=== PATIENT | female | born 1955 | race Caucasian/White ===

== ENCOUNTER 2017-04-13 12:36 | Observation (INO) | payer BC, MEDICARE ==
[2017-04-13] MEDS ORDERED: HYDROcodone/Acetaminophen 5/325 mg Tablet ONE ×2 (13:07→15:09)
--- NOTE | 2017-04-13 13:46 | RAD ---
THREE VIEWS OF THE RIGHT ANKLE: INDICATION: Right ankle pain. FINDINGS: There is a transverse oriented fracture involving the lateral malleolar tip. The distal fracture fr agment is moderately comminuted. There is prominent soft tissue swelling overlying the lateral aspe ct of the ankle. The talar dome is within normal limits. Enthesopathic change is seen off the calc aneus. No additional fracture is evident. IMPRESSION: Lateral malleolar fracture. POS: DYANA
--- NOTE | 2017-04-13 13:47 | RAD ---
RIGHT HIP 2 VIEWS: HISTORY: Injury to right hip. FINDINGS: No evidence of fracture identified. Femoral head contour is normal. No significant abnormality is seen. IMPRESSION: No acute abnormality. POS: DYANA
[2017-04-13 14:47] LABS: #Basophils 0.1 thou/uL (0.0-0.2); #Eosinphils 0.1 thou/uL (0.0-0.7); #Lymphocytes 2.8 thou/uL (1.20-3.40); #Monocytes 1.1 thou/uL (0.11-0.59); #Neutrophils 7.9 thou/uL (1.40-6.50); %Basophils 0.9 % (0.0-1.0); %Eosinophils 0.8 % (0.0-10.0); %Lymphocytes 23.7 % (21.0-51.0); %Monocytes 8.8 % (0.0-10.0); Hematocrit 42.9 % (36.0-47.0); Mean Platelet Volume 9.3 fL (7.4-10.4); Red Blood Cell (RBC) Count 5.45 mill/uL (4.20-5.40)
[2017-04-13 15:08] LABS: ALT (SGPT) 20 U/L (8-55); AST (SGOT) 27 U/L (5-34); Alkaline Phosphatase 97 U/L (40-150); Anion Gap 15 mmol/L (10-20); BUN (Urea Nitrogen) 17 mg/dL (9.8-20.1); Bilirubin, Total 0.3 mg/dL (0.2-1.2); Calc. Creatinine Clearance 0 mL/min (70-130); Calcium 8.8 mg/dL (7.8-10.44); Carbon Dioxide 26 mmol/L (23-31); Chloride 101 mmol/L (98-107); Estimated GFR-MDRD 82; Globulin 3.3 g/dL (2.4-3.5); Protein, Total 7.2 g/dL (6.0-8.3)
[2017-04-13] MEDS ORDERED: Mag-Al 1200 mg/1200 mg/30 ML UDCUP PO PRN (15:16)
[2017-04-13] MEDS ORDERED: ALPRAZolam 0.5 MG TAB PO PRN (15:16)
[2017-04-13] MEDS ORDERED: Ondansetron HCl/PF 4 MG/2 ML Vial IVP PRN (15:17)
[2017-04-13] MEDS ORDERED: Milk Of Magnesia 30 ML UDCUP PO PRN (15:17)
--- NOTE | 2017-04-13 15:36 | PDOC.EVN ---
Event Note - Event Note Event Note: H&P: [id number] #Mechanical Fall with Right Lateral Malleolar Fracture * consult ortho * PT/OT * prn analgesics #DM2 * SSI * f/u accu checks #HTN * monitor BP #Depression/Anxiety/Bipolar * stable * monitor
[2017-04-13] MEDS ORDERED: Insulin Regular 300 UNITS/3 ML VIAL SC PRN (15:38)
[2017-04-13] MEDS ORDERED: Dextrose 5% in Water 1,000 ML IV PRN (15:38)
[2017-04-13] MEDS ORDERED: Dextrose 50% Abboject 50 ML SYRINGE SLOW IVP PRN (15:38)
[2017-04-13] MEDS ORDERED: Ketorolac Tromethamine 30 MG/ML VIAL ONE ×2 (16:29→17:27)
--- NOTE | 2017-04-13 16:36 | HP ---
DATE OF ADMISSION: 04/13/2017 TIME: 3:31 p.m. CHIEF COMPLAINT: Right ankle pain. HISTORY OF PRESENT ILLNESS: This is a very pleasant 62-year-old female who presented as a result of right ankle injury. She reported that she was taking pictures of a house that was being built; and while she was walking and looking up at the house, she stepped in to an uneven ground. When she st epped into that hole, she felt like her right ankle was rolled and she fell to her right and hit her right hip and raised her left knee. After that, she was brought into the emergency room and x-ray revealed a right lateral malleolar fracture. Her hip x-ray did not reveal any acute issues. Her pa in is controlled at this time with medications given in the emergency room. She denies any chest pain, shortness of breath, fevers, chills, nausea or vomiting. She also denied any lightheadedness prior to the fall. PAST MEDICAL HISTORY: 1. Diabetes mellitus type 2. 2. Hyperlipidemia. 3. Anxiety. 4. Depression. 5. Bipolar disorder. 6. Hypertension. 7. Coronary artery disease. PAST SURGICAL HISTORY: 1. CABG. 2. Hysterectomy. 3. Tubal ligation. 4. Coronary artery stents. 5. History of laparoscopic band surgery for weight loss. FAMILY HISTORY: Reviewed and noncontributory to the presenting illness. SOCIAL HISTORY: The patient denies any tobacco, alcohol or illicit drug use. ALLERGIES: Reviewed, please refer to chart for details. MEDICATIONS: Reviewed, please refer to chart for details. PHYSICAL EXAMINATION: VITAL SIGNS: Reviewed, please refer to chart for details. GENERAL: Patient was sitting in a chair in the emergency room when I entered her room accompanied b y her , who is a police lieutenant patrol. HEENT: Normocephalic, atraumatic. NECK: Supple, no masses. LYMPH NODES: No cervical or supraclavicular lymphadenopathy. CARDIOVASCULAR: S1 and S2 are audible with regular rate and rhythm. LUNGS: Clear to auscultation bilaterally with no wheezes, rales or rhonchi. ABDOMEN: Obese; however, soft, nontender. Positive bowel sounds. No guarding, rebound or rigidity . : No CVA tenderness bilaterally. No suprapubic tenderness either. MUSCULOSKELETAL: Right lower extremity is wrapped and elevated. I do not remove bandages. SKIN: Warm and dry moist mucous membranes. Left knee abrasions from her fall. PSYCHIATRIC: Appropriate, cooperative. NEUROLOGIC: Alert and oriented x3, answering questions appropriately with judgment intact. LABORATORY DATA: Reviewed, please refer to chart for details. IMAGING: Reviewed, please refer to chart for details. ASSESSMENT AND PLAN: This is a 62-year-old female who suffered a mechanical fall with subsequent ri ght ankle pain. 1. Right lateral malleolar fracture, status post mechanical fall. We will consult Orthopedic surge ry. Consult PT and OT. We will consult protective services case worker for acute rehab placement p.r.n. analgesics. 2. Diabetes mellitus type 2. Start sliding scale insulin. Follow up [facility] and at [facility]. 3. Anxiety/depression/bipolar stable. Continue home medications. 4. Hypertension, stable. Continue home medication. Monitor blood pressure and heart rate closely.
[2017-04-13 18:13] VITALS: BMI 45.1
[2017-04-13] MEDS: HYDROcodone/Acetaminophen 5/325 mg Tablet PO PRN (20:32)
[2017-04-13] MEDS ORDERED: Clopidogrel Bisulfate 75 MG TAB PO SCH (21:00)
[2017-04-13] MEDS ORDERED: Atorvastatin Calcium 40 MG TAB PO SCH (21:00)
[2017-04-13] MEDS ORDERED: ALPRAZolam 1 MG TAB PO SCH (21:00)
[2017-04-14] MEDS: HYDROcodone/Acetaminophen 5/325 mg Tablet PO PRN ×3 (04:06→17:06)
[2017-04-14 05:26] LABS: Anion Gap 16 mmol/L (10-20); BUN (Urea Nitrogen) 24 mg/dL (9.8-20.1); Calc. Creatinine Clearance 121 mL/min (70-130); Calcium 8.3 mg/dL (7.8-10.44); Carbon Dioxide 27 mmol/L (23-31); Chloride 100 mmol/L (98-107); Estimated GFR-MDRD 77; Magnesium 2.2 mg/dL (1.6-2.6)
[2017-04-14] MEDS ORDERED: Levothyroxine Sodium 75 MCG TAB PO SCH (06:00)
[2017-04-14 06:06] LABS: #Eosinphils 0.1 thou/uL (0.0-0.7); #Lymphocytes 2.7 thou/uL (1.20-3.40); #Monocytes 0.9 thou/uL (0.11-0.59); #Neutrophils 5.7 thou/uL (1.40-6.50); %Lymphocytes 28.8 % (21.0-51.0); %Monocytes 9.9 % (0.0-10.0); Hematocrit 37.6 % (36.0-47.0); Mean Platelet Volume 9.3 fL (7.4-10.4); Red Blood Cell (RBC) Count 4.72 mill/uL (4.20-5.40); White Blood Cell (WBC) Count 9.4 thou/uL (4.8-10.8)
[2017-04-14 06:07] LABS: Band 5 % (5-11); Neutrophil 66 % (42-75)
--- NOTE | 2017-04-14 07:08 | CON ---
DATE OF CONSULTATION: 04/14/2017 REQUESTING PHYSICIAN: Dr. Trevon Garrido CHIEF COMPLAINT: Right ankle pain. HISTORY OF PRESENT ILLNESS: The patient is a pleasant 62-year-old lady who was examined in her hosp ital bed for evaluation of a right ankle injury. She reports that on 04/13/2017 she was walking on uneven ground around a construction site next to her home. She stepped in a hole and twisted her ri ght ankle. Upon arrival at [facility] x-rays were obtained that showed an avulsion fractur e from the tip of the lateral malleolus consistent with a talonavicular ligament avulsion. Hip x-ra ys were also obtained; however, no fracture seen. Given these findings, orthopedic consultation req uested. PAST MEDICAL HISTORY: Remarkable for type 2 diabetes, anxiety, depression, bipolar disorder, mckeon ry artery disease and hypertension. PAST SURGICAL HISTORY: Coronary artery bypass, hysterectomy, tubal ligation, coronary artery stents , and lap band procedure. MEDICATIONS: I will refer you to the medication reconciliation form. ALLERGIES: METFORMIN and PENICILLINS. FAMILY HISTORY: Noncontributory. SOCIAL HISTORY: Patient denies tobacco, alcohol, or drug use. REVIEW OF SYSTEMS: Denies recent fevers, chills or sweats. Denies chest pain or shortness of breat h. Denies numbness or tingling in the lower extremity. PHYSICAL EXAMINATION: VITAL SIGNS: Temperature 98.6 degrees Fahrenheit, heart rate of 62, respiratory rate of 18, and blo od pressure 108/53. HEENT: Atraumatic, normocephalic. HEART: Shows a regular rate and rhythm without murmur. LUNGS: Clear to auscultation bilaterally with no wheezes or rhonchi. ABDOMEN: Round, soft, but nontender. Pelvis is stable. EXTREMITIES: Remarkable for bilateral upper extremities that are atraumatic at the shoulder, elbow, wrist and hand. She is moving her fingers normally. Denies numbness or tingling. Left lower extr emity; atraumatic at the hip, knee, ankle and foot. She is wiggling her toes and denies numbness or tingling. The right lower extremity is in a short leg posterior fiberglass splint. She is moving her toes comfortably and does not have pain with passive stretch. She has intact subjective sensati on over the dorsum and plantar surface of the forefoot. The knee appears atraumatic. X-ray; review of plain films of the right ankle are remarkable for an avulsion fracture from the tip of the lateral malleolus, but no fracture at the medial side or posteriorly. There is no widening of the mortise. No lateral shift of the talus. ASSESSMENT: A 62-year-old lady status post a twisting injury to right ankle with avulsion fracture from the tip of the lateral malleolus. PLAN: Today I discussed with the patient that her ankle is stable. I believe at this time she coul d be weightbearing as tolerated, but should be immobilized either in a cast or a walker boot. For t he time being, the posterior splint is effective management, although will not hold up with weightbe aring. We will have physical therapy see the patient and begin working with the patient on touchdow n weightbearing and will also order a walker boot that hopefully will be more comfortable and allow for improved mobility. The patient will need to follow up in the Orthopedic Clinic in 3-4 weeks' ti me for reevaluation and follow up x-ray.
[2017-04-14] MEDS ORDERED: Enoxaparin Sodium 40 MG/0.4 ML SYRINGE SC SCH (09:00)
[2017-04-14] MEDS ORDERED: Sodium Chloride 0.9% 500 ML IVPB SCH (11:15)
[2017-04-14] MEDS ORDERED: Sodium Chloride 0.9% 1,000 ML IV SCH (11:15)
[2017-04-14] MEDS ORDERED: Insulin Regular 300 UNITS/3 ML VIAL ONE (12:31)
[2017-04-14 15:15] VITALS: BP 109/52; TEMP 97.7
--- NOTE | 2017-04-14 20:16 | DIS ---
DATE OF ADMISSION: 04/13/2017 DATE OF DISCHARGE: 04/14/2017 DISCHARGE DIAGNOSES: 1. Right distal fibular avulsion fracture at the lateral malleolus, status post inversion injury. 2. Diabetes mellitus type 2. 3. Anxiety/depression. 4. Hypertension, stable. CONSULTATIONS: Dr. Junior with Orthopedic Surgery Service. PERTINENT LABORATORY AND X-RAY FINDINGS: Basic metabolic profile within normal limits. Magnesium i s 2.2. LFTs are within normal limits. CBC showed a white blood cell count ranging between 9.4 to 1 2.0. Three views of the right ankle dated 04/13/2017 showed distal lateral malleolar fracture. Two views of the right hip dated 04/13/2017 showed no evidence of fracture or dislocation. HOSPITAL COURSE: The patient was observed on the telemetry unit after initially presenting status p ost fall with inversion mechanism to the right ankle. The patient underwent general evaluation incl uding plain radiographs showing evidence of avulsion type fracture of the distal fibula at the later al malleolus. The patient was evaluated by the Orthopedic Surgery Service with recommendations for walking boot and pain control. No specific surgical intervention recommended at this time. The pat ient was fitted for a walking boot with instructions on home care. Current plans are outpatient fol low up with Orthopedic Surgery Service in 2 to 3 weeks after discharge. Overall, the patient remain ed clinically stable throughout the hospital course, tolerating regular oral intake, and ready for d ischarge on 04/14/2017. DISCHARGE MEDICATIONS: 1. Xanax 0.5 mg p.o. b.i.d. and 1 mg p.o. at bedtime. 2. Enteric-coated aspirin 81 mg 1 tablet p.o. daily. 3. Lipitor 40 mg p.o. at bedtime. 4. Vitamin D3 of 5000 units p.o. daily. 5. Citalopram 40 mg p.o. daily. 6. Plavix 75 mg 1 tablet p.o. at bedtime. 7. Vitamin B12 of 1000 mcg p.o. daily. 8. [place] 5/325 mg 1 tablet p.o. q.6 hours p.r.n. pain, #30 given, no refills. 9. Levothyroxine 75 mcg 1 tablet p.o. daily. 10. Seroquel 25 mg p.o. b.i.d. 11. Altace 2.5 mg p.o. b.i.d. 12. Ranexa 500 mg p.o. b.i.d. FOLLOWUP: The patient will follow up with Dr. Duy Santo within 7 days of discharge. The patien t will follow up with Dr. Bryan Junior with Orthopedic Surgery Service in 2 to 3 weeks after dis charge. CONDITION ON DISCHARGE: Stable. ACTIVITY: Ad lenny. Walking boot with rolling walker for ambulation. DIET: Heart healthy. CODE STATUS: FULL. DISPOSITION: Home on 04/14/2017.
== END 2017-04-14 18:31 | disposition home or self-care (01) ==
LOC: ERS 12:36 → 2SW 15:17
PROVIDERS: ADMIT Hospitalist; ATTEND Hospitalist
DX: S82.401A Unspecified fracture of shaft of right fibula, initial encounter for closed fracture (principal); E11.9 Type 2 diabetes mellitus without complications; I10 Essential (primary) hypertension; F41.9 Anxiety disorder, unspecified; E78.5 Hyperlipidemia, unspecified; F31.9 Bipolar disorder, unspecified; I25.10 Atherosclerotic heart disease of native coronary artery without angina pectoris; Z88.0 Allergy status to penicillin; Z79.899 Other long term (current) drug therapy; Z88.8 Allergy status to other drugs, medicaments and biological substances; Z90.710 Acquired absence of both cervix and uterus; Z98.84 Bariatric surgery status; Z98.51 Tubal ligation status; Z95.1 Presence of aortocoronary bypass graft; Z95.5 Presence of coronary angioplasty implant and graft
CPT/HCPCS: 36415; 36416; 80048; 80053; 83735; 85025; 93005; 96360; 96361; 96372; G0378; G8978-GP-CK; G8979-GP-CI; G8987-GO-CL; G8988-GO-CI; J1650; J1815; J1885

== ENCOUNTER 2017-11-24 16:58 | Emergency (ER) | payer BC, MEDICARE ==
[2017-11-24] MEDS ORDERED: Acetaminophen 500 MG TAB ONE (18:28)
[2017-11-24] MEDS ORDERED: Diazepam 5 MG TAB ONE (18:28)
--- NOTE | 2017-11-24 19:10 | CT ---
CT HEAD WITHOUT CONTRAST: 11/24/17 Multiple axial tomograms obtained through the head without IV enhancement. HISTORY: Fall with injury to head. Comparison made with exam of 11/21/02. Ventricles have normal size and position. There is no evidence of intracranial mass or hemorrhage. No evidence of acute infarct. Sinuses and mastoids are well aerated. IMPRESSION: No acute abnormality identified. POS: AGW
--- NOTE | 2017-11-24 19:12 | CT ---
CT CERVICAL SPINE: 11/24/17 Multiple axial tomograms obtained through the cervical spine with multiplanar reconstructions. INDICATION: Fall with injury to head and neck. Cervical vertebrae maintain normal height and alignment. Disc spaces are maintained. Mild degenerativ e changes noted. No evidence of fracture. IMPRESSION: No acute fracture identified. POS: AGW
--- NOTE | 2017-11-24 19:48 | RAD ---
RIGHT SHOULDER THREE VIEWS: 11/24/17 HISTORY: 62-year-old female with history of right shoulder pain following a fall. FINDINGS/IMPRESSION: Mild degenerative changes. No fracture or dislocation. POS: DYANA
--- NOTE | 2017-11-24 19:51 | RAD ---
AP PELVIS ONE VIEW 11/24/17 HISTORY: 62-year-old female with pelvic pain following a fall. FINDINGS/IMPRESSION: Mild degenerative changes and hip joint arthrosis. No fracture or dislocation. POS: DYANA
--- NOTE | 2017-11-24 19:52 | RAD ---
RIGHT KNEE FOUR VIEWS: 11/24/17 HISTORY: 62-year-old female with right knee pain following a fall. FINDINGS/IMPRESSION: Mild degenerative changes of the knee joint. No fracture, dislocation or other acute process. POS: DYANA
--- NOTE | 2017-11-24 19:54 | RAD ---
RIGHT ANKLE THREE VIEWS: 11/24/17 HISTORY: 62-year-old female with history of right ankle pain following a fall. FINDINGS/IMPRESSION: Mild degenerative changes. No fracture or dislocation or other acute process. POS: DYANA
--- NOTE | 2017-11-24 19:55 | RAD ---
LEFT KNEE FOUR VIEWS 11/24/17 HISTORY: 62-year-old female with left knee pain following a fall. FINDINGS/IMPRESSION: Mild degenerative changes of the knee joint. No fracture or dislocation or other acute process. POS: DYANA
--- NOTE | 2017-11-24 20:30 | RAD ---
LUMBAR SPINE: 11/24/17 Three views. HISTORY: Fall with back pain. Lumbar vertebrae maintain normal height and alignment. No compression deformity or evidence of acute fracture. There are moderate degenerative changes. Disc space narrowing at L4-5 and L5-S1. Mild degen erative osteophytes and facet hypertrophy. IMPRESSION: There are degenerative changes of the lumbar spine. No evidence of compression or acute fracture. POS: AGW
--- NOTE | 2017-11-24 20:31 | RAD ---
THORACIC SPINE TWO VIEWS 11/24/17 HISTORY: 62-year-old female with thoracic spine pain following a fall. COMPARISON: 05/06/11. Postop midline sternotomy changes. Generalized thoracic spondylosis. No evidence for acute fracture o r dislocation involving the visualized thoracic spine. IMPRESSION: Thoracic spondylosis. No fracture or dislocation. POS: [facility]
== END 2017-11-24 20:24 | disposition home or self-care (01) ==
LOC: ERS 16:58
DX: M25.561 Pain in right knee (principal); M25.552 Pain in left hip; M25.551 Pain in right hip; M25.571 Pain in right ankle and joints of right foot; I10 Essential (primary) hypertension; I25.10 Atherosclerotic heart disease of native coronary artery without angina pectoris; E78.5 Hyperlipidemia, unspecified; F41.9 Anxiety disorder, unspecified; F31.9 Bipolar disorder, unspecified; F90.9 Attention-deficit hyperactivity disorder, unspecified type; E03.9 Hypothyroidism, unspecified; Z79.899 Other long term (current) drug therapy; W18.30XA Fall on same level, unspecified, initial encounter
CPT/HCPCS: 70450; 72072; 72100; 72125; 72170

== ENCOUNTER 2018-06-13 12:35 | Observation (INO) | payer BC, MEDICARE ==
[2018-06-13 13:07] LABS: #Eosinphils 0.1 thou/uL (0.0-0.7); #Lymphocytes 2.3 thou/uL (1.20-3.40); #Monocytes 0.6 thou/uL (0.11-0.59); #Neutrophils 3.8 thou/uL (1.40-6.50); %Basophils 0.7 % (0.0-1.0); %Eosinophils 1.2 % (0.0-10.0); %Lymphocytes 33.3 % (21.0-51.0); %Monocytes 8.9 % (0.0-10.0); Hemoglobin 12.5 g/dL (12.0-16.0); Mean Corpuscular HGB CONC 31.6 g/dL (32.0-36.0); Mean Corpuscular Hemoglobin 24.8 pg (27.0-31.0); Mean Corpuscular Volume 78.4 fL (78.0-98.0); Platelet Count 214 thou/uL (130-400); RBC Distribution Width 16.4 % (11.5-14.5); Red Blood Cell (RBC) Count 5.05 mill/uL (4.20-5.40); White Blood Cell (WBC) Count 6.8 thou/uL (4.8-10.8)
[2018-06-13 13:32] LABS: CKMB 1.1 ng/mL (0-6.6); Troponin I Less than 0.010 ng/mL (< 0.028)
[2018-06-13 13:33] LABS: ALT (SGPT) 14 U/L (8-55); AST (SGOT) 23 U/L (5-34); Albumin 4.2 g/dL (3.4-4.8); Alkaline Phosphatase 109 U/L (40-150); Anion Gap 14 mmol/L (10-20); BUN (Urea Nitrogen) 10 mg/dL (9.8-20.1); Bilirubin, Total 0.6 mg/dL (0.2-1.2); CK (CPK) 123 U/L (29-168); Calc. Creatinine Clearance 0 mL/min (70-130); Calcium 9.5 mg/dL (7.8-10.44); Carbon Dioxide 28 mmol/L (23-31); Chloride 99 mmol/L (98-107); Estimated GFR-MDRD 78; Globulin 3.7 g/dL (2.4-3.5); Glucose 118 mg/dL (80-115); Potassium 4.1 mmol/L (3.5-5.1); Protein, Total 7.9 g/dL (6.0-8.3); Sodium 137 mmol/L (136-145)
--- NOTE | 2018-06-13 13:38 | RAD ---
FRONTAL VIEW CHEST: INDICATION: Chest pain. COMPARISON: Chest radiograph exam dated 01/01/2015. FINDINGS: There is a stable cardiomediastinal silhouette. No consolidation, effusion, or discrete pneumothorax . IMPRESSION: Stable chest. POS: [facility]
[2018-06-13 16:21] VITALS: BMI 37.0
[2018-06-13] MEDS ORDERED: Acetaminophen 325 MG TAB PO PRN (16:30)
[2018-06-13] MEDS ORDERED: Ondansetron ODT 4 MG TAB SL PRN (16:30)
[2018-06-13] MEDS ORDERED: Ondansetron PF 4 MG/2 ML Vial IVP PRN ×2 (16:30→17:16)
[2018-06-13] MEDS ORDERED: hydrALAZINE 20 MG/ML VIAL SLOW IVP PRN (17:16)
[2018-06-13] MEDS ORDERED: Acetaminophen 500 MG TAB PO PRN (17:16)
[2018-06-13] MEDS ORDERED: Nitroglycerin 0.4 MG TAB (25 Tab Bottle) PO PRN (17:16)
[2018-06-13] MEDS ORDERED: Ondansetron ODT 4 MG TAB PO PRN (17:16)
[2018-06-13] MEDS ORDERED: HYDROcodone/Acetaminophen 5/325 mg Tablet PO PRN (17:16)
[2018-06-13 18:35] LABS: Troponin I Less than 0.010 ng/mL (< 0.028)
[2018-06-13] MEDS: ALPRAZolam 0.5 MG TAB PO SCH ×2 (19:34→21:14)
[2018-06-13] MEDS: Famotidine 20 MG TAB PO SCH (19:37)
[2018-06-13] MEDS: Divalproex Sodium 250 MG (DR) TAB PO SCH (19:37)
[2018-06-13 20:32] LABS: Troponin I Less than 0.010 ng/mL (< 0.028)
[2018-06-13] MEDS ORDERED: Clopidogrel Bisulfate 75 MG TAB PO SCH (21:00)
[2018-06-13] MEDS ORDERED: Atorvastatin Calcium 40 MG TAB PO SCH (21:00)
--- NOTE | 2018-06-13 21:32 | HP ---
DATE OF ADMISSION: 06/13/2018 PRIMARY CARE PHYSICIAN: Dr. Duy Santo. CHIEF COMPLAINT: Chest pain, body aches, forgetfulness. HISTORY OF PRESENT ILLNESS: This is a 63-year-old female who presented to [facility] Emerge ncy Department complaining of approximately 1-month history of intermittent central chest pressure an d pain, sharp at times and dull at others without specific pattern. Patient states she has taken her home regimen of sublingual nitroglycerin intermittently with mild relief of her symptoms. Patient a dmits the chest pain has been present correlating with her 's illness and recent diagnosis of esophageal cancer with subsequent 31-day hospital stay at the [facility] in [place], [place]. Patient admits to increase stressors related to her 's illness. Her new role caring for her as well as the of her mother at the end of 04/2018. Patient states all these stressors have ta jenny their toll on her with frequent crying episodes, body aches, forgetfulness, and general malaise. Patient states she has been compliant with her chronic medication regimen including aspirin and Plav ix after a history of coronary artery disease, status post bypass grafting x4 vessels in the remote p ast. Patient admits to some left lower extremity pain when ambulating mainly in the hip region, but does state that she took her dog on a walk in the last 24 hours to clear her head and had no difficul ty with the exercise and walk. Patient denied any specific swelling to her lower extremities, unilat eral weakness, fever, chills, or exposure history. Patient denies any specific change to her appetit e, but does state that she has lost approximately 20 pounds in the last several months. In the emerg ency room, patient underwent general evaluation including a screening metabolic survey showing negati ve troponin x1. Patient received aspirin 162 mg x1 dose and was referred to the observation unit. PAST MEDICAL HISTORY: 1. Coronary artery disease, status post cardiac stent placement x3. 2. Hyperlipidemia. 3. Hypertension. 4. Morbid obesity. 5. Obstructive sleep apnea with nocturnal CPAP. 6. Hypothyroidism. 7. History of cataracts. PAST SURGICAL HISTORY: 1. Status post coronary artery bypass grafting x4 vessels. 2. Status post cardiac stent placement x3. 3. Status post appendectomy. 4. Status post cholecystectomy. 5. Status post gastric bypass. 6. Status post section x2. 7. Status post tonsillectomy. CURRENT MEDICATIONS: 1. Xanax 0.5 mg p.o. 5 times per day. 2. Enteric-coated aspirin 81 mg 1 tab p.o. daily. 3. Lipitor 40 mg p.o. at bedtime. 4. Vitamin D3 of 5000 units p.o. daily. 5. Citalopram 40 mg p.o. daily. 6. Plavix 75 mg p.o. at bedtime. 7. Divalproex 250 mg p.o. t.i.d. 8. Synthroid 2.5 mcg p.o. daily. 9. Seroquel 25 mg p.o. 5 times per day. 10. Ranexa 500 mg p.o. daily. 11. [place] 5/325 mg 1 tab p.o. q.6 hours p.r.n. pain. ALLERGIES: METFORMIN. FAMILY HISTORY: Positive for hypertension and coronary artery disease. SOCIAL HISTORY: Patient is , residing in [place], [place]. Disabled. No current alcohol, tobacc o, or illicit drug use. Functional of all activities of daily living. REVIEW OF SYSTEMS: The following complete review of systems was otherwise negative, except as stated per HPI: Constitutional: Weight loss or gain, ability to conduct usual activities. Skin: Rash, i tching. Eyes: Double vision, pain. ENT/Mouth: Nose bleeding, neck stiffness, pain, tenderness. C ardiovascular: Palpitations, dyspnea on exertion, orthopnea. Respiratory: Shortness of breath, whe ezing, cough, hemoptysis, fever, or night sweats. Gastrointestinal: Poor appetite, abdominal pain, heartburn, nausea, vomiting, constipation, or diarrhea. Genitourinary: Urgency, frequency, dysuria, nocturia. Musculoskeletal: Pain, swelling. Neurologic/Psychiatric: Anxiety, depression. Allergy /Immunologic: Skin rash, bleeding tendency. PHYSICAL EXAMINATION: VITAL SIGNS: Currently, blood pressure 116/55, pulse 61, respiratory rate 15, temperature 97.8 degre es Fahrenheit, O2 saturation 100% on room air. GENERAL APPEARANCE: This is a 63-year-old female, alert and oriented x3, pleasant with flat affect i n no acute distress. HEENT: Pupils are equal, round, and reactive to light and accommodation. Extraocular muscles are in tact. No scleral icterus, no conjunctival injection. Nares patent. OP is clear. Teeth in good rep air. NECK: Supple, no cervical adenopathy, no thyromegaly, no carotid bruits, no JVD appreciated. Cervic al spine with full active and passive range of motion. No meningeal signs appreciated. CHEST: Lungs are clear to auscultation bilaterally. CARDIOVASCULAR: S1, S2 with 1 to 2/6 systolic ejection murmur in the left upper sternal border. ABDOMEN: Obese, soft, nontender, nondistended. Bowel sounds are positive in all four quadrants. Th ere is no hepatosplenomegaly, no abdominal bruits, no rebound or guarding appreciated. EXTREMITIES: Warm and dry with fair turgor. No clubbing, cyanosis, or asymmetric edema appreciated. Pulses are palpable distally at the dorsalis pedis, posterior tibial, and popliteal arteries bilate rally. Capillary refill less than 2 seconds. NEUROLOGIC: Cranial nerves II through XII are grossly intact. No focal or lateralizing signs apprec iated. PERTINENT LABORATORY AND X-RAY FINDINGS: Basic metabolic profile within normal limits. Troponin I n egative x1. CBC within normal limits. Portable chest x-ray dated 06/13/2018 showed no acute cardiop ulmonary process. EKG dated 06/13/2018 by my interpretation shows a sinus mechanism with heart rates in the 70s. Normal R-wave progression noted in the precordial leads. Normal axis. No acute ST-T w ave changes noted. ASSESSMENT AND PLAN: 1. Chest pain. Nonspecific in nature currently. We will continue serial cardiac biomarkers. Check fasting lipid profile in the a.m. Continue telemetry monitoring. No current evidence to suggest ac jane coronary syndrome. Suspect musculoskeletal in origin. Continue aspirin 81 mg daily. 2. Hypertension. Resume home antihypertensive regimen and monitor clinical response. 3. Hypothyroidism. Continue levothyroxine and recheck TSH level in the a.m. 4. Depression. Resume home antidepressant regimen and monitor clinical response. 5. Coronary artery disease. Chronic and stable. Resume home regimen to include aspirin and Plavix. Continue Ranexa 500 mg p.o. daily. 6. Prophylaxis. Sequential compression devices while in bed. Pepcid 20 mg p.o. b.i.d. PT evaluati on for functional assessment. 7. Code status is FULL. Surrogate medical decision maker is patient's spouse.
[2018-06-14 04:11] LABS: Anion Gap 11 mmol/L (10-20); BUN (Urea Nitrogen) 12 mg/dL (9.8-20.1); Calc. Creatinine Clearance 107 mL/min (70-130); Calcium 9.1 mg/dL (7.8-10.44); Carbon Dioxide 28 mmol/L (23-31); Cardiac Risk 3.9 (Less than 4.5); Chloride 103 mmol/L (98-107); Cholesterol 141 mg/dl (< 200 Desired); Estimated GFR-MDRD 84; Glucose 109 mg/dL (80-115); HDL Cholesterol 36 mg/dL (>60 Neg Risk); LDL Cholesterol, Calculated 63 mg/dL; Potassium 4.3 mmol/L (3.5-5.1); Sodium 138 mmol/L (136-145); Triglycerides 210 mg/dL (Less than 150)
[2018-06-14 04:23] LABS: Band 2 % (5-11); Hemoglobin 11.5 g/dL (12.0-16.0); Lymphocytes 43 % (21-51); MDiff Complete? YES; Mean Corpuscular HGB CONC 31.7 g/dL (32.0-36.0); Mean Corpuscular Volume 78.8 fL (78.0-98.0); Monocytes 10 % (0-10); Neutrophil 45 % (42-75); Platelet Count 202 thou/uL (130-400); RBC Distribution Width 16.4 % (11.5-14.5); White Blood Cell (WBC) Count 6.6 thou/uL (4.8-10.8)
[2018-06-14] MEDS ORDERED: Levothyroxine Sodium 75 MCG TAB PO SCH (06:00)
[2018-06-14] MEDS ORDERED: ADENOSINE 60 MG/20 ML VIAL ONE (08:37)
[2018-06-14] MEDS ORDERED: Citalopram 20 MG TAB PO SCH (09:00)
[2018-06-14] MEDS: ALPRAZolam 0.5 MG TAB PO SCH ×2 (09:33→12:50)
[2018-06-14] MEDS: Famotidine 20 MG TAB PO SCH (09:34)
[2018-06-14] MEDS: Divalproex Sodium 250 MG (DR) TAB PO SCH (09:35)
--- NOTE | 2018-06-14 11:48 | STRESS ---
Acquisition Time: 2018-06-14 10:49:22 Total Exercise Time: 00:04:00 Test Indications: CHEST PAIN Medications: Protocol: ADENOSINE Max HR: 066 BPM 42% of Pred: 156 BPM Max BP: 122/058 mmHG Max Work Load: 1.0 METS RESTING ECG: NORMAL SINUS RHYTHM AT 60 BPM SYMPTOMS: DYSPNEA ON EXERTION/HEADACHE NORMAL BP RESPONSE ECTOPY: NONE ECG STRESS: NO SIGNIFICANT CHANGES INTERPRETATION: NEGATIVE ECG/AWAIT NUCLEAR IMAGES FOR DEFINITIVE DIAGNOSIS Confirmed by RUTHIE LORENZO M.D. ([id number]), acquisitions editor William Swain ([id number]) on 06/14/2018 11:48:11 AM Referred By: MD Tory DYSON Confirmed By:RUTHIE LORENZO M.D.
[2018-06-14 12:13] VITALS: BP 141/65; TEMP 97.7
--- NOTE | 2018-06-14 13:40 | PDOC.PN ---
- Subjective Encounter Start Date: 06/14/18 Encounter Start Time: 13:35 Subjective: f/u for CP, general malaise. Completed active portion of FLOOR FINISHER but -: resting images pending for 06/15/18. No current CP or symptoms. - Objective Resuscitation Status: Resuscitation Status FULL:Full Resuscitation MAR Reviewed: Yes Vital Signs & Weight: Vital Signs (12 hours) Temp Pulse Resp BP BP Pulse Ox 06/14/18 12:11 97.7 F 66 16 141/65 H 93 L 06/14/18 07:34 97.8 F 60 18 114/54 L 96 06/14/18 03:00 98.5 F 66 18 105/52 L 95 Weight Weight 183 lb 11.2 oz I&O: 06/13/18 06/14/18 06/15/18 06:59 06:59 06:59 Intake Total 510 Output Total 825 Balance 510 -825 Result Diagrams: 06/14/18 02:59 06/14/18 02:59 Dx/Plan - Plan * .
--- NOTE | 2018-06-14 14:10 | DIS ---
DATE OF ADMISSION: 06/13/2018 DATE OF DISCHARGE: 06/14/2018 DISCHARGE DIAGNOSES: 1. Chest pain, likely musculoskeletal. 2. Gastroesophageal reflux. 3. Hypertension, stable. 4. Hypothyroidism. 5. Depression. 6. Coronary artery disease, chronic and stable. CONSULTATIONS: None. PERTINENT LABORATORY DATA AND X-RAY FINDINGS: Basic metabolic profile within normal limits. Troponi n I negative x3. Total cholesterol 141, triglycerides 210, HDL 36, LDL 63. CBC showed a white blood cell count of 6.6, hemoglobin 12, hematocrit 36, platelet count 202. Portable chest x-ray dated showed no acute cardiopulmonary process. Cardiolite stress test dated 06/14/2018 showed no e vidence for reversible or fixed ischemia. HOSPITAL COURSE: Patient was observed on the telemetry unit after initially presenting with chest pa in in the context of known chronic coronary artery disease. Serial cardiac biomarkers were negative x3 at which point the patient underwent Cardiolite stress testing. No significant evidence of revers ible or fixed ischemia noted on imaging and telemetry monitoring showed a sinus mechanism without keely dence of acute arrhythmia or dysrhythmia. The patient's chest pain is likely multifactorial includin g musculoskeletal origin, as well as gastroesophageal reflux. Recommendations are to continue chroni c therapy to include aspirin, Lipitor, Plavix and Ranexa. I have examined the patient at the time of discharge and discussed the followup instructions. The patient did verbalized understanding and in agreement and ready for discharge on 06/14/2018. DISCHARGE MEDICATIONS: 1. Xanax 0.5 mg p.o. 5 times per day. 2. Enteric coated aspirin 81 mg p.o. daily. 3. Lipitor 40 mg p.o. at bedtime. 4. Vitamin D3 5000 units p.o. daily. 5. Citalopram 40 mg p.o. daily. 6. Plavix 75 mg p.o. at bedtime. 7. Divalproex 250 mg p.o. t.i.d. 8. Levothyroxine 75 mcg p.o. daily. 9. Seroquel 25 mg p.o. 5 times per day. 10. Ranexa 500 mg p.o. daily. FOLLOWUP: Patient to follow up with her primary care provider, Dr. Duy Santo within 7 days of [facility] mcintyre. CONDITION ON DISCHARGE: Stable. ACTIVITY: ad lenny. DIET: Heart healthy. CODE STATUS: FULL. DISPOSITION: Home on 06/14/2018.
--- NOTE | 2018-06-14 14:49 | NM ---
CARDIAC SPECT STRESS ONLY WITH EF AND WALL MOTION: History: 63-year-old female with chest pain. FINDINGS: Sestamibi adenosine study is performed. Patient was injected with 30 mCi Technetium 99M Sestamibi intravenously for stress only images. No scan evidence for infarct or ischemia. LHR: 0.27 EDV: 74 ml EF: 78% MYOCARDIAL PERFUSION WALL MOTION: Wall motion is normal. IMPRESSION: Unremarkable stress only cardiac SPECT with EF and wall motion. POS: DYANA
== END 2018-06-14 14:55 | disposition home or self-care (01) ==
LOC: ERS 12:35 → 2SW 16:08
PROVIDERS: ADMIT Family Medicine; ATTEND Family Medicine
DX: R07.89 Other chest pain (principal); I25.10 Atherosclerotic heart disease of native coronary artery without angina pectoris; E78.5 Hyperlipidemia, unspecified; G47.33 Obstructive sleep apnea (adult) (pediatric); E03.9 Hypothyroidism, unspecified; F32.9 Major depressive disorder, single episode, unspecified; I10 Essential (primary) hypertension; E66.01 Morbid (severe) obesity due to excess calories; Z68.37 Body mass index [BMI] 37.0-37.9, adult; Z95.1 Presence of aortocoronary bypass graft; Z79.02 Long term (current) use of antithrombotics/antiplatelets; Z79.82 Long term (current) use of aspirin; Z79.899 Other long term (current) drug therapy; Z88.8 Allergy status to other drugs, medicaments and biological substances; Z95.5 Presence of coronary angioplasty implant and graft; Z98.84 Bariatric surgery status; Z99.89 Dependence on other enabling machines and devices
CPT/HCPCS: 36415; 71045; 78452; 80048; 80053; 80061; 82553; 84484; 85007; 85025; 85027; 93005; 93017; 94660; A9500; G0378; G8978-GP-CK; G8979-GP-CK; G8980-GP-CK; J0153; Q0162

== ENCOUNTER 2020-10-31 13:14 | Emergency (ER) | payer BC, MEDICARE ==
[~2020-10-31 13:14] MED LIST: Iopamidol-370 76% 500 ML 1 ML ONE
[2020-10-31 13:40] LABS: #Lymphocytes 1.2 thou/uL (1.20-3.40); #Monocytes 0.5 thou/uL (0.11-0.59); %Basophils 0.8 % (0.0-1.0); %Eosinophils 0.8 % (0.0-10.0); %Monocytes 9.6 % (0.0-10.0); %Neutrophils 62.9 % (42.0-75.0); Hemoglobin 12.1 g/dL (12.0-16.0); Mean Corpuscular HGB CONC 31.3 g/dL (32.0-36.0); Mean Corpuscular Hemoglobin 24.4 pg (27.0-31.0); Mean Corpuscular Volume 78.2 fL (78.0-98.0); Mean Platelet Volume 9.5 fL (7.4-10.4); Platelet Count 169 thou/uL (130-400); RBC Distribution Width 16.2 % (11.5-14.5); Red Blood Cell (RBC) Count 4.96 mill/uL (4.20-5.40); White Blood Cell (WBC) Count 4.7 thou/uL (4.8-10.8)
[2020-10-31] MEDS ORDERED: Ondansetron PF 4 MG/2 ML Vial ONE (13:51)
[2020-10-31] MEDS ORDERED: Morphine 4 MG/ML VIAL ONE (13:51)
[2020-10-31 13:59] LABS: ALT (SGPT) 362 U/L (8-55); AST (SGOT) 677 U/L (5-34); Albumin 3.6 g/dL (3.4-4.8); Alkaline Phosphatase 274 U/L (40-110); Anion Gap 12 mmol/L (10-20); BUN (Urea Nitrogen) 14 mg/dL (9.8-20.1); Bilirubin, Total 0.9 mg/dL (0.2-1.2); Calc. Creatinine Clearance 0 mL/min (70-130); Carbon Dioxide 27 mmol/L (23-31); Chloride 100 mmol/L (98-107); Globulin 2.7 g/dL (2.4-3.5); Glucose 115 mg/dL (80-115); Lipase 11 U/L (8-78); Potassium 3.4 mmol/L (3.5-5.1); Protein, Total 6.3 g/dL (5.8-8.1); Sodium 136 mmol/L (136-145)
[2020-10-31] MEDS ORDERED: Pantoprazole 40 MG VIAL ONE (15:36)
== END 2020-10-31 18:20 | disposition home or self-care (01) ==
LOC: ERS 13:14
DX: R11.2 Nausea with vomiting, unspecified (principal); R19.7 Diarrhea, unspecified; R74.01 Elevation of levels of liver transaminase levels; I10 Essential (primary) hypertension; E03.9 Hypothyroidism, unspecified; E78.5 Hyperlipidemia, unspecified; E78.00 Pure hypercholesterolemia, unspecified; Z79.899 Other long term (current) drug therapy
CPT/HCPCS: 36415; 74177; 76705; 80053; 83690; 84484; 85025; 93005; 96374; 96375; C9113; J2270; J2405; Q9967

== ENCOUNTER 2020-11-05 09:11 | Inpatient (IN) | payer BC, MEDICARE ==
[2020-11-05 09:49] LABS: #Eosinphils 0.1 thou/uL (0.0-0.7); #Lymphocytes 1.7 thou/uL (1.20-3.40); #Monocytes 0.9 thou/uL (0.11-0.59); #Neutrophils 12.1 thou/uL (1.40-6.50); %Basophils 0.1 % (0.0-1.0); %Eosinophils 0.5 % (0.0-10.0); %Lymphocytes 11.7 % (21.0-51.0); %Neutrophils 81.8 % (42.0-75.0); Hemoglobin 12.6 g/dL (12.0-16.0); Mean Corpuscular HGB CONC 30.7 g/dL (32.0-36.0); Mean Corpuscular Hemoglobin 24.6 pg (27.0-31.0); Mean Corpuscular Volume 80.3 fL (78.0-98.0); Mean Platelet Volume 9.1 fL (7.4-10.4); Platelet Count 185 thou/uL (130-400); RBC Distribution Width 16.5 % (11.5-14.5); Red Blood Cell (RBC) Count 5.13 mill/uL (4.20-5.40); White Blood Cell (WBC) Count 14.7 thou/uL (4.8-10.8)
[2020-11-05] MEDS ORDERED: Ondansetron PF 4 MG/2 ML Vial ONE (10:07)
[2020-11-05 10:12] LABS: ALT (SGPT) 59 U/L (8-55); AST (SGOT) 34 U/L (5-34); Albumin 3.7 g/dL (3.4-4.8); Alkaline Phosphatase 142 U/L (40-110); Anion Gap 15 mmol/L (10-20); BUN (Urea Nitrogen) 9 mg/dL (9.8-20.1); Bilirubin, Total 0.3 mg/dL (0.2-1.2); Calc. Creatinine Clearance 0 mL/min (70-130); Calcium 8.5 mg/dL (7.8-10.44); Carbon Dioxide 26 mmol/L (23-31); Chloride 103 mmol/L (98-107); Globulin 2.9 g/dL (2.4-3.5); Glucose 158 mg/dL (80-115); Lipase 17 U/L (8-78); Potassium 3.8 mmol/L (3.5-5.1); Protein, Total 6.6 g/dL (5.8-8.1); Sodium 140 mmol/L (136-145)
[2020-11-05] MEDS ORDERED: metroNIDAZOLE 500 MG/100 ML BAG ONE (10:44)
[2020-11-05] MEDS ORDERED: Acetaminophen 325 MG TAB PO PRN (11:55)
[2020-11-05] MEDS ORDERED: Ondansetron PF 4 MG/2 ML Vial IVP PRN (11:55)
[2020-11-05 12:05] LABS: Bilirubin Negative (Negative); Blood, Urine Trace (Negative); Clarity Turbid (Clear); Glucose, Urine (Dipstick) Greater than 1000 mg/dL (Negative); Ketone, Urine Negative (Negative); Leukocyte 500 Leu/uL (Negative); Nitrite Negative (Negative); Protein, Urine (Dipstick) 10 mg/dL (Neg-Trace); Specific Gravity, Urine 1.026 (1.002-1.036); Urobilinogen Normal mg/dL (Less than 2); WBC/HPF Greater than 50 HPF (0-3); pH, Urine 5.5 (5.0-9.0)
[2020-11-05 12:06] LABS: Bacteria/HPF 1+ HPF (None Seen)
[2020-11-05 12:53] LABS: Lactic Acid 2.5 mmol/L (0.5-2.2)
[2020-11-05] MEDS ORDERED: Iopamidol-370 76% 500 ML 1 ML ONE (12:58)
[2020-11-05] MEDS: Sodium Chloride 0.9% 1,000 ML IV SCH ×2 (13:36→20:45)
[2020-11-05] MEDS: Divalproex Sodium 250 MG (DR) TAB PO SCH ×2 (18:14→20:45)
[2020-11-05] MEDS: Atorvastatin Calcium 40 MG TAB PO SCH (20:44)
[2020-11-05] MEDS: metroNIDAZOLE 500 MG in Premix Bag 1 BAG IVPB SCH (20:44)
[2020-11-05] MEDS: Clopidogrel Bisulfate 75 MG TAB PO SCH (20:45)
[2020-11-05] MEDS: Famotidine/PF 20 mg/2ml Vial SLOW IVP SCH (20:46)
[2020-11-06 01:53] LABS: SARS-CoV-2 PCR by NAA Not Detected (NotDetected)
[2020-11-06] MEDS: metroNIDAZOLE 500 MG in Premix Bag 1 BAG IVPB SCH ×3 (03:13→18:13)
[2020-11-06 04:52] LABS: #Eosinphils 0.1 thou/uL (0.0-0.7); #Lymphocytes 2.2 thou/uL (1.20-3.40); #Monocytes 0.5 thou/uL (0.11-0.59); #Neutrophils 5.3 thou/uL (1.40-6.50); %Basophils 0.1 % (0.0-1.0); %Eosinophils 0.6 % (0.0-10.0); %Lymphocytes 26.9 % (21.0-51.0); %Monocytes 6.7 % (0.0-10.0); %Neutrophils 65.7 % (42.0-75.0); Hemoglobin 11.1 g/dL (12.0-16.0); Mean Corpuscular Hemoglobin 24.2 pg (27.0-31.0); Mean Corpuscular Volume 80.6 fL (78.0-98.0); Mean Platelet Volume 9.4 fL (7.4-10.4); Platelet Count 168 thou/uL (130-400); RBC Distribution Width 16.3 % (11.5-14.5); White Blood Cell (WBC) Count 8.1 thou/uL (4.8-10.8)
[2020-11-06] MEDS: Sodium Chloride 0.9% 1,000 ML IV SCH ×3 (05:08→21:14)
[2020-11-06 05:10] LABS: ALT (SGPT) 39 U/L (8-55); AST (SGOT) 20 U/L (5-34); Albumin 3.2 g/dL (3.4-4.8); Alkaline Phosphatase 111 U/L (40-110); Anion Gap 12 mmol/L (10-20); BUN (Urea Nitrogen) 8 mg/dL (9.8-20.1); Bilirubin, Total 0.2 mg/dL (0.2-1.2); Calc. Creatinine Clearance 0 mL/min (70-130); Carbon Dioxide 27 mmol/L (23-31); Chloride 108 mmol/L (98-107); Globulin 2.6 g/dL (2.4-3.5); Glucose 100 mg/dL (80-115); Potassium 3.5 mmol/L (3.5-5.1); Protein, Total 5.8 g/dL (5.8-8.1); Sodium 143 mmol/L (136-145)
[2020-11-06 05:31] VITALS: BMI 32.1
[2020-11-06] MEDS: Levothyroxine Sodium 75 MCG TAB PO SCH (06:23)
[2020-11-06] MEDS: Aspirin Chewable 81 MG TAB PO SCH (09:31)
[2020-11-06] MEDS: Divalproex Sodium 250 MG (DR) TAB PO SCH ×3 (09:32→21:10)
[2020-11-06] MEDS: Citalopram 20 MG TAB PO SCH (09:32)
[2020-11-06] MEDS: Enoxaparin Sodium 40 MG/0.4 ML SYRINGE SC SCH (09:34)
[2020-11-06] MEDS: Famotidine/PF 20 mg/2ml Vial SLOW IVP SCH ×2 (09:35→21:11)
[2020-11-06 09:47] LABS: Lactic Acid 1.2 mmol/L (0.5-2.2)
[2020-11-06] MEDS ORDERED: Dextrose 50% Abboject 50 ML SYRINGE SLOW IVP PRN (10:14)
[2020-11-06] MEDS ORDERED: Dextrose 5% in Water 1,000 ML IV PRN (10:14)
[2020-11-06] MEDS ORDERED: HumaLOG 300 UNITS/3 ML VIAL SC PRN (10:14)
[2020-11-06] MEDS: Clopidogrel Bisulfate 75 MG TAB PO SCH (21:10)
[2020-11-06] MEDS: ALPRAZolam 0.5 MG TAB PO SCH (21:10)
[2020-11-06] MEDS: Atorvastatin Calcium 40 MG TAB PO SCH (21:10)
[2020-11-07] MEDS: metroNIDAZOLE 500 MG in Premix Bag 1 BAG IVPB SCH ×2 (02:48→11:22)
[2020-11-07] MEDS: Levothyroxine Sodium 75 MCG TAB PO SCH (05:59)
[2020-11-07 06:31] LABS: #Eosinphils 0.3 thou/uL (0.0-0.7); #Lymphocytes 2.4 thou/uL (1.20-3.40); #Monocytes 0.6 thou/uL (0.11-0.59); %Basophils 0.5 % (0.0-1.0); %Eosinophils 4.4 % (0.0-10.0); %Lymphocytes 38.1 % (21.0-51.0); %Monocytes 10.1 % (0.0-10.0); Hemoglobin 11.2 g/dL (12.0-16.0); Mean Corpuscular HGB CONC 30.1 g/dL (32.0-36.0); Mean Corpuscular Hemoglobin 24.2 pg (27.0-31.0); Mean Corpuscular Volume 80.5 fL (78.0-98.0); Mean Platelet Volume 9.1 fL (7.4-10.4); Platelet Count 166 thou/uL (130-400); RBC Distribution Width 16.1 % (11.5-14.5); Red Blood Cell (RBC) Count 4.63 mill/uL (4.20-5.40); White Blood Cell (WBC) Count 6.3 thou/uL (4.8-10.8)
[2020-11-07 06:53] LABS: ALT (SGPT) 35 U/L (8-55); AST (SGOT) 28 U/L (5-34); Albumin 3.2 g/dL (3.4-4.8); Alkaline Phosphatase 105 U/L (40-110); Anion Gap 11 mmol/L (10-20); BUN (Urea Nitrogen) 4 mg/dL (9.8-20.1); Bilirubin, Total 0.3 mg/dL (0.2-1.2); Calc. Creatinine Clearance 98 mL/min (70-130); Calcium 8.1 mg/dL (7.8-10.44); Carbon Dioxide 29 mmol/L (23-31); Chloride 106 mmol/L (98-107); Globulin 2.7 g/dL (2.4-3.5); Glucose 119 mg/dL (80-115); Potassium 3.9 mmol/L (3.5-5.1); Protein, Total 5.9 g/dL (5.8-8.1); Sodium 142 mmol/L (136-145)
[2020-11-07] MEDS ORDERED: Loperamide HCl 2 MG CAP PO PRN (08:02)
[2020-11-07] MEDS: Enoxaparin Sodium 40 MG/0.4 ML SYRINGE SC SCH (08:04)
[2020-11-07] MEDS: Aspirin Chewable 81 MG TAB PO SCH (08:05)
[2020-11-07] MEDS: Citalopram 20 MG TAB PO SCH (08:05)
[2020-11-07] MEDS: Famotidine/PF 20 mg/2ml Vial SLOW IVP SCH ×2 (08:05→20:21)
[2020-11-07] MEDS: Divalproex Sodium 250 MG (DR) TAB PO SCH ×3 (08:06→20:20)
[2020-11-07] MEDS: Sodium Chloride 0.9% 1,000 ML IV SCH ×2 (08:07→22:12)
[2020-11-07] MEDS: Cholestyramine/Aspartame 4 gm Packet PO SCH ×2 (10:22→22:12)
[2020-11-07] MEDS ORDERED: Loperamide HCl 2 MG CAP PO SCH (11:45)
[2020-11-07] MEDS: Clopidogrel Bisulfate 75 MG TAB PO SCH (20:20)
[2020-11-07] MEDS: Atorvastatin Calcium 40 MG TAB PO SCH (20:20)
[2020-11-07] MEDS: ALPRAZolam 0.5 MG TAB PO SCH (20:21)
[2020-11-08] MEDS: Levothyroxine Sodium 75 MCG TAB PO SCH (04:57)
[2020-11-08 05:31] LABS: #Basophils 0.1 thou/uL (0.0-0.2); #Eosinphils 0.4 thou/uL (0.0-0.7); #Lymphocytes 2.5 thou/uL (1.20-3.40); #Monocytes 0.8 thou/uL (0.11-0.59); #Neutrophils 3.3 thou/uL (1.40-6.50); %Basophils 1.1 % (0.0-1.0); %Lymphocytes 35.2 % (21.0-51.0); %Monocytes 11.8 % (0.0-10.0); %Neutrophils 46.8 % (42.0-75.0); Hemoglobin 10.6 g/dL (12.0-16.0); Mean Corpuscular HGB CONC 30.3 g/dL (32.0-36.0); Mean Corpuscular Hemoglobin 24.1 pg (27.0-31.0); Mean Corpuscular Volume 79.6 fL (78.0-98.0); Mean Platelet Volume 9.4 fL (7.4-10.4); Platelet Count 184 thou/uL (130-400); RBC Distribution Width 16.1 % (11.5-14.5); Red Blood Cell (RBC) Count 4.41 mill/uL (4.20-5.40)
[2020-11-08 05:53] LABS: Anion Gap 13 mmol/L (10-20); BUN (Urea Nitrogen) 5 mg/dL (9.8-20.1); Calc. Creatinine Clearance 109 mL/min (70-130); Calcium 8.5 mg/dL (7.8-10.44); Carbon Dioxide 28 mmol/L (23-31); Chloride 104 mmol/L (98-107); Glucose 85 mg/dL (80-115); Magnesium 1.7 mg/dL (1.6-2.6); Potassium 3.7 mmol/L (3.5-5.1); Sodium 141 mmol/L (136-145)
[2020-11-08] MEDS ORDERED: Loperamide HCl 2 MG CAP PO SCH (07:30)
[2020-11-08] MEDS ORDERED: Amlodipine 5 MG TAB PO SCH (09:00)
[2020-11-08] MEDS: Famotidine/PF 20 mg/2ml Vial SLOW IVP SCH (09:47)
[2020-11-08] MEDS: Enoxaparin Sodium 40 MG/0.4 ML SYRINGE SC SCH (09:47)
[2020-11-08] MEDS: Citalopram 20 MG TAB PO SCH (09:48)
[2020-11-08] MEDS: Aspirin Chewable 81 MG TAB PO SCH (09:48)
[2020-11-08] MEDS: Divalproex Sodium 250 MG (DR) TAB PO SCH (09:49)
[2020-11-08] MEDS: Cholestyramine/Aspartame 4 gm Packet PO SCH (09:49)
[2020-11-08] MEDS ORDERED: cefTRIAXone\\ROCEPHIN 1 GM in Sodium Chloride 0.9% 100 ML IVPB SCH (10:00)
[2020-11-08 11:29] VITALS: BP 162/70; TEMP 97.4
[2020-11-13 14:15] LABS: Routine O & P Final report (.)
== END 2020-11-08 12:10 | disposition home or self-care (01) | DRG 392 ==
LOC: ERS 09:11 → ERHOLD 11:00 → 2NO 17:47
PROVIDERS: ADMIT Internal Medicine; ATTEND Internal Medicine
DX: A08.11 Acute gastroenteropathy due to Norwalk agent (principal); N39.0 Urinary tract infection, site not specified; I10 Essential (primary) hypertension; E78.5 Hyperlipidemia, unspecified; I25.10 Atherosclerotic heart disease of native coronary artery without angina pectoris; E66.9 Obesity, unspecified; F41.9 Anxiety disorder, unspecified; F32.9 Major depressive disorder, single episode, unspecified; K58.9 Irritable bowel syndrome, unspecified; E86.0 Dehydration; E03.9 Hypothyroidism, unspecified; B96.20 Unspecified Escherichia coli [E. coli] as the cause of diseases classified elsewhere; Z98.84 Bariatric surgery status; Z79.01 Long term (current) use of anticoagulants; Z95.5 Presence of coronary angioplasty implant and graft; Z90.49 Acquired absence of other specified parts of digestive tract
CPT/HCPCS: 36415; 36416; 71045; 74177; 80048; 80053; 81003; 81015; 82274; 83605; 83630; 83690; 83735; 84484; 85025; 86674; 86850; 86900; 86901; 87040; 87045; 87046; 87077; 87086; 87177; 87324; 87427; 87449; 87635; 93005; 96365; 96367; 96375; J0696; J0744; J1650; J2405; J3490; Q9967; S0028; U0003; U0005

== ENCOUNTER 2020-11-20 17:21 | Emergency (ER) | payer OTHER, BC, MEDICARE ==
[2020-11-20] MEDS ORDERED: Acetaminophen 500 MG TAB ONE (17:54)
[2020-11-20] MEDS ORDERED: Boostrix 0.5 ML (Tdap) VIAL ONE (17:54)
== END 2020-11-20 20:02 | disposition home or self-care (01) ==
LOC: ERS 17:21
DX: S13.9XXA Sprain of joints and ligaments of unspecified parts of neck, initial encounter (principal); S00.03XA Contusion of scalp, initial encounter; I10 Essential (primary) hypertension; E03.9 Hypothyroidism, unspecified; E78.5 Hyperlipidemia, unspecified; E78.00 Pure hypercholesterolemia, unspecified; Z95.1 Presence of aortocoronary bypass graft; Z79.899 Other long term (current) drug therapy; W01.10XA Fall on same level from slipping, tripping and stumbling with subsequent striking against unspecified object, initial encounter
CPT/HCPCS: 70450; 72125; 90471; 90715

== ENCOUNTER 2020-12-29 12:27 | Emergency (ER) | payer BC, MEDICARE ==
[2020-12-29 13:29] LABS: #Basophils 0.1 thou/uL (0.0-0.2); #Eosinphils 0.1 thou/uL (0.0-0.7); #Lymphocytes 1.9 thou/uL (1.20-3.40); #Monocytes 0.6 thou/uL (0.11-0.59); %Basophils 0.9 % (0.0-1.0); %Eosinophils 1.2 % (0.0-10.0); %Lymphocytes 34.1 % (21.0-51.0); %Monocytes 10.5 % (0.0-10.0); %Neutrophils 53.3 % (42.0-75.0); Hemoglobin 11.3 g/dL (12.0-16.0); Mean Corpuscular HGB CONC 32.9 g/dL (32.0-36.0); Mean Corpuscular Hemoglobin 26.1 pg (27.0-31.0); Mean Corpuscular Volume 79.3 fL (78.0-98.0); Mean Platelet Volume 9.6 fL (7.4-10.4); Platelet Count 198 thou/uL (130-400); Red Blood Cell (RBC) Count 4.33 mill/uL (4.20-5.40); White Blood Cell (WBC) Count 5.7 thou/uL (4.8-10.8)
[2020-12-29 13:50] LABS: ALT (SGPT) 27 U/L (8-55); AST (SGOT) 31 U/L (5-34); Albumin 4.1 g/dL (3.4-4.8); Alkaline Phosphatase 81 U/L (40-110); Anion Gap 12 mmol/L (10-20); BUN (Urea Nitrogen) 16 mg/dL (9.8-20.1); Bilirubin, Total 0.3 mg/dL (0.2-1.2); Calc. Creatinine Clearance 0 mL/min (70-130); Calcium 8.9 mg/dL (7.8-10.44); Carbon Dioxide 28 mmol/L (23-31); Chloride 105 mmol/L (98-107); Globulin 3.4 g/dL (2.4-3.5); Glucose 90 mg/dL (80-115); Potassium 4.1 mmol/L (3.5-5.1); Protein, Total 7.5 g/dL (5.8-8.1); Sodium 141 mmol/L (136-145)
[2020-12-29] MEDS ORDERED: Ketorolac Tromethamine 30 MG/ML VIAL ONE (16:27)
[2020-12-29 17:55] LABS: Troponin I Less than 0.010 ng/mL (< 0.028)
== END 2020-12-29 19:28 | disposition home or self-care (01) ==
LOC: ERS 12:27
DX: M94.0 Chondrocostal junction syndrome [Tietze] (principal); R06.00 Dyspnea, unspecified; I10 Essential (primary) hypertension; R73.03 Prediabetes; E03.9 Hypothyroidism, unspecified; E78.00 Pure hypercholesterolemia, unspecified; E78.5 Hyperlipidemia, unspecified; I25.10 Atherosclerotic heart disease of native coronary artery without angina pectoris; Z79.02 Long term (current) use of antithrombotics/antiplatelets; Z79.899 Other long term (current) drug therapy
CPT/HCPCS: 36415; 71045; 71275; 80053; 83605; 83880; 84484; 85025; 93005; 96374; J1885; Q9967

== ENCOUNTER 2021-06-21 14:52 | Outpatient (CLI) | payer BC, MEDICARE | END 2021-06-21 14:53 | disposition home or self-care (01) | LOC: BICMAMMO 14:52 | PROVIDERS: ATTEND Internal Medicine Rheumatology | DX: Z13.820 Encounter for screening for osteoporosis (principal); M85.851 Other specified disorders of bone density and structure, right thigh; M85.852 Other specified disorders of bone density and structure, left thigh; Z78.0 Asymptomatic menopausal state | CPT/HCPCS: 77080 ==

== ENCOUNTER 2021-07-13 13:17 | Emergency (ER) | payer BC, MEDICARE ==
[2021-07-13 13:49] LABS: #Eosinphils 0.1 thou/uL (0.0-0.7); #Lymphocytes 1.8 thou/uL (1.20-3.40); #Monocytes 0.6 thou/uL (0.11-0.59); #Neutrophils 4.9 thou/uL (1.40-6.50); %Basophils 0.4 % (0.0-1.0); %Eosinophils 0.9 % (0.0-10.0); %Lymphocytes 23.7 % (21.0-51.0); %Monocytes 8.4 % (0.0-10.0); %Neutrophils 66.7 % (42.0-75.0); Mean Corpuscular Hemoglobin 26.6 pg (27.0-31.0); Mean Corpuscular Volume 85.8 fL (78.0-98.0); Mean Platelet Volume 7.9 fL (7.4-10.4); Platelet Count 182 thou/uL (130-400); RBC Distribution Width 15.8 % (11.5-14.5); Red Blood Cell (RBC) Count 4.51 mill/uL (4.20-5.40); White Blood Cell (WBC) Count 7.4 thou/uL (4.8-10.8)
[2021-07-13 14:11] LABS: ALT (SGPT) 52 U/L (8-55); AST (SGOT) 52 U/L (5-34); Albumin 3.9 g/dL (3.4-4.8); Alkaline Phosphatase 95 U/L (40-110); Anion Gap 12 mmol/L (10-20); BUN (Urea Nitrogen) 20 mg/dL (9.8-20.1); Bilirubin, Total 0.3 mg/dL (0.2-1.2); Calc. Creatinine Clearance 0 mL/min (70-130); Calcium 8.7 mg/dL (7.8-10.44); Carbon Dioxide 26 mmol/L (23-31); Chloride 105 mmol/L (98-107); Globulin 3.1 g/dL (2.4-3.5); Glucose 124 mg/dL (80-115); Potassium 4.1 mmol/L (3.5-5.1); Sodium 139 mmol/L (136-145)
[2021-07-13] MEDS ORDERED: Morphine 4 MG/ML VIAL ONE (15:10)
[2021-07-13] MEDS ORDERED: Ketorolac Tromethamine 30 MG/ML VIAL ONE (15:10)
== END 2021-07-13 15:44 | disposition home or self-care (01) ==
LOC: ERS 13:17
DX: S09.90XA Unspecified injury of head, initial encounter (principal); S70.02XA Contusion of left hip, initial encounter; W01.0XXA Fall on same level from slipping, tripping and stumbling without subsequent striking against object, initial encounter; I10 Essential (primary) hypertension; I25.10 Atherosclerotic heart disease of native coronary artery without angina pectoris; E11.9 Type 2 diabetes mellitus without complications; E03.9 Hypothyroidism, unspecified; E78.5 Hyperlipidemia, unspecified; E78.00 Pure hypercholesterolemia, unspecified; Z79.899 Other long term (current) drug therapy
CPT/HCPCS: 36415; 70450; 71045; 72170; 80053; 84484; 85025; 85730; 93005; 96372; J1885; J2270

== ENCOUNTER 2021-08-23 15:35 | Observation (INO) | payer BC, MEDICARE ==
[2021-08-23 16:08] LABS: #Eosinphils 0.1 thou/uL (0.0-0.7); #Lymphocytes 1.8 thou/uL (1.20-3.40); #Monocytes 0.8 thou/uL (0.11-0.59); #Neutrophils 4.7 thou/uL (1.40-6.50); %Basophils 0.5 % (0.0-1.0); %Eosinophils 0.9 % (0.0-10.0); %Lymphocytes 24.2 % (21.0-51.0); %Monocytes 11.1 % (0.0-10.0); %Neutrophils 63.3 % (42.0-75.0); Hemoglobin 11.6 g/dL (12.0-16.0); Mean Corpuscular HGB CONC 32.2 g/dL (32.0-36.0); Mean Corpuscular Hemoglobin 27.5 pg (27.0-31.0); Mean Corpuscular Volume 85.4 fL (78.0-98.0); Mean Platelet Volume 8.3 fL (7.4-10.4); Platelet Count 198 thou/uL (130-400); RBC Distribution Width 16.1 % (11.5-14.5); White Blood Cell (WBC) Count 7.4 thou/uL (4.8-10.8)
[2021-08-23 16:30] LABS: ALT (SGPT) 21 U/L (8-55); AST (SGOT) 27 U/L (5-34); Albumin 3.6 g/dL (3.4-4.8); Alkaline Phosphatase 101 U/L (40-110); Anion Gap 12 mmol/L (10-20); BUN (Urea Nitrogen) 16 mg/dL (9.8-20.1); Bilirubin, Total 0.2 mg/dL (0.2-1.2); Calc. Creatinine Clearance 0 mL/min (70-130); Calcium 8.6 mg/dL (7.8-10.44); Carbon Dioxide 24 mmol/L (23-31); Chloride 108 mmol/L (98-107); Globulin 3.3 g/dL (2.4-3.5); Glucose 128 mg/dL (80-115); Potassium 3.8 mmol/L (3.5-5.1); Protein, Total 6.9 g/dL (5.8-8.1); Sodium 140 mmol/L (136-145)
[2021-08-23] MEDS: Acetaminophen 325 MG TAB PO PRN ×2 (19:49→23:54)
[2021-08-23] MEDS: Divalproex Sodium 250 MG (DR) TAB PO SCH (20:57)
[2021-08-23] MEDS: Ondansetron PF 4 MG/2 ML Vial IVP PRN (20:57)
[2021-08-23] MEDS: Isosorbide Dinitrate 20 MG TAB PO SCH (20:57)
[2021-08-23] MEDS ORDERED: Atorvastatin Calcium 20 MG TAB PO SCH (21:00)
[2021-08-23] MEDS ORDERED: ALPRAZolam 1 MG TAB PO SCH (21:00)
[2021-08-24 04:46] LABS: #Eosinphils 0.1 thou/uL (0.0-0.7); #Lymphocytes 2.2 thou/uL (1.20-3.40); #Monocytes 0.6 thou/uL (0.11-0.59); #Neutrophils 2.8 thou/uL (1.40-6.50); %Basophils 0.5 % (0.0-1.0); %Lymphocytes 38.7 % (21.0-51.0); %Monocytes 9.9 % (0.0-10.0); %Neutrophils 48.9 % (42.0-75.0); Mean Corpuscular Hemoglobin 27.4 pg (27.0-31.0); Mean Corpuscular Volume 85.7 fL (78.0-98.0); Platelet Count 194 thou/uL (130-400); RBC Distribution Width 16.3 % (11.5-14.5); Red Blood Cell (RBC) Count 3.99 mill/uL (4.20-5.40); White Blood Cell (WBC) Count 5.6 thou/uL (4.8-10.8)
[2021-08-24] MEDS: Acetaminophen 325 MG TAB PO PRN ×2 (05:04→13:39)
[2021-08-24 05:08] LABS: Phosphorus 3.2 mg/dL (2.3-4.7)
[2021-08-24 05:09] LABS: Anion Gap 9 mmol/L (10-20); BUN (Urea Nitrogen) 12 mg/dL (9.8-20.1); Calc. Creatinine Clearance 109 mL/min (70-130); Calcium 8.3 mg/dL (7.8-10.44); Carbon Dioxide 29 mmol/L (23-31); Chloride 108 mmol/L (98-107); Glucose 88 mg/dL (80-115); Magnesium 1.8 mg/dL (1.6-2.6); Potassium 3.8 mmol/L (3.5-5.1); Sodium 142 mmol/L (136-145)
[2021-08-24 05:32] LABS: Thyroid Stimulating Hormone 0.1063 uIU/mL (0.35-4.94)
[2021-08-24] MEDS ORDERED: Levothyroxine Sodium 112 MCG TAB PO SCH (06:00)
[2021-08-24] MEDS ORDERED: Enoxaparin Sodium 40 MG/0.4 ML SYRINGE SC SCH (09:00)
[2021-08-24] MEDS ORDERED: Clopidogrel Bisulfate 75 MG TAB PO SCH (09:00)
[2021-08-24] MEDS: Divalproex Sodium 250 MG (DR) TAB PO SCH ×2 (09:27→14:49)
[2021-08-24] MEDS: Isosorbide Dinitrate 20 MG TAB PO SCH (09:27)
[2021-08-24] MEDS: Ondansetron PF 4 MG/2 ML Vial IVP PRN (09:27)
[2021-08-24 11:25] LABS: SARS-CoV-2 PCR by NAA Not Detected (NotDetected)
[2021-08-24] MEDS ORDERED: ALPRAZolam 0.5 MG TAB PO SCH (12:00)
[2021-08-24 12:25] VITALS: BP 113/56; TEMP 97.9
[2021-08-24 14:08] VITALS: BMI 32.1
== END 2021-08-24 15:10 | disposition home or self-care (01) ==
LOC: ERS 15:35 → 2NO 17:10
PROVIDERS: ADMIT Internal Medicine; ATTEND Internal Medicine
DX: R13.10 Dysphagia, unspecified (principal); R07.9 Chest pain, unspecified; R25.2 Cramp and spasm; R53.1 Weakness; I10 Essential (primary) hypertension; E78.5 Hyperlipidemia, unspecified; I25.10 Atherosclerotic heart disease of native coronary artery without angina pectoris; E11.9 Type 2 diabetes mellitus without complications; E03.9 Hypothyroidism, unspecified; E78.00 Pure hypercholesterolemia, unspecified; Z79.02 Long term (current) use of antithrombotics/antiplatelets; Z79.82 Long term (current) use of aspirin; Z79.899 Other long term (current) drug therapy; Z95.1 Presence of aortocoronary bypass graft; Z95.5 Presence of coronary angioplasty implant and graft; Z98.84 Bariatric surgery status; Z20.822 Contact with and (suspected) exposure to COVID-19
CPT/HCPCS: 36415; 36416; 71045; 80048; 80053; 82533; 82607; 82746; 83735; 83880; 84100; 84443; 84484; 85025; 93005; 96372; 96374; G0378; J1650; J2405; U0003; U0005

== ENCOUNTER 2022-02-04 09:52 | Inpatient (IN) | payer BC, MEDICARE ==
[2022-02-04 10:33] LABS: Hemoglobin 12.6 g/dL (12.0-16.0); Mean Corpuscular HGB CONC 30.3 g/dL (32.0-36.0); Mean Corpuscular Hemoglobin 24.5 pg (27.0-31.0); Mean Corpuscular Volume 80.8 fL (78.0-98.0); Mean Platelet Volume 9.5 fL (7.4-10.4); Platelet Count 241 thou/uL (130-400); RBC Distribution Width 16.5 % (11.5-14.5); Red Blood Cell (RBC) Count 5.13 mill/uL (4.20-5.40); White Blood Cell (WBC) Count 19.1 thou/uL (4.8-10.8)
[2022-02-04 10:38] LABS: #Eosinphils 0.1 thou/uL (0.0-0.7); #Lymphocytes 1.3 thou/uL (1.20-3.40); #Monocytes 1.6 thou/uL (0.11-0.59); #Neutrophils 16.1 thou/uL (1.40-6.50); %Basophils 0.1 % (0.0-1.0); %Eosinophils 0.3 % (0.0-10.0); %Lymphocytes 6.7 % (21.0-51.0); %Monocytes 8.5 % (0.0-10.0); %Neutrophils 84.5 % (42.0-75.0); MDiff Complete? YES; Platelet Morphology Comment Appears Adequate; Polychromasia SLIGHT = 2-3 cells (100X) (0-2/hpf)
[2022-02-04 11:05] LABS: ALT (SGPT) 34 U/L (8-55); AST (SGOT) 52 U/L (5-34); Albumin 4.3 g/dL (3.4-4.8); Alkaline Phosphatase 113 U/L (40-110); Anion Gap 21 mmol/L (10-20); BUN (Urea Nitrogen) 11 mg/dL (9.8-20.1); Bilirubin, Total 0.8 mg/dL (0.2-1.2); Calc. Creatinine Clearance 0 mL/min (70-130); Calcium 9.3 mg/dL (7.8-10.44); Carbon Dioxide 22 mmol/L (23-31); Chloride 97 mmol/L (98-107); Estimated GFR 86; Globulin 3.8 g/dL (2.4-3.5); Glucose 137 mg/dL (80-115); Protein, Total 8.1 g/dL (5.8-8.1); Sodium 135 mmol/L (136-145)
[2022-02-04 11:19] LABS: INR-International Normal Ratio 0.9; PTT 32.8 sec (22.9-36.1); Prothrombin Time 12.6 sec (12.0-14.7)
[2022-02-04] MEDS ORDERED: Cefepime 2 GM VIAL ONE (12:05)
[2022-02-04] MEDS ORDERED: hydrALAZINE 20 MG/ML VIAL SLOW IVP PRN (12:31)
[2022-02-04] MEDS ORDERED: Ondansetron ODT 4 MG TAB PO PRN (12:32)
[2022-02-04] MEDS ORDERED: Aspirin Chewable 81 MG TAB ONE (12:42)
[2022-02-04] MEDS ORDERED: Vancomycin 1 GM/200 ML BAG ONE (12:53)
[2022-02-04] MEDS ORDERED: Dextrose 5% in Water 1,000 ML IV PRN (13:21)
[2022-02-04] MEDS ORDERED: Dextrose 50% Abboject 50 ML SYRINGE SLOW IVP PRN (13:21)
[2022-02-04 13:44] LABS: SARS-CoV-2 NAA Rapid Test Not Detected (NotDetected)
[2022-02-04 16:36] VITALS: BMI 32.7
[2022-02-04] MEDS: Azithromycin 500 MG in Sodium Chloride 0.9% 250 ML 250 ML IVPB SCH (17:35)
[2022-02-04] MEDS: HumaLOG 300 UNITS/3 ML VIAL SC PRN (21:20)
[2022-02-04] MEDS: cefTRIAXone\\ROCEPHIN 1 GM in Sodium Chloride 0.9% 100 ML IVPB SCH (21:20)
[2022-02-04] MEDS: Acetaminophen 325 MG TAB PO PRN (21:30)
[2022-02-04] MEDS ORDERED: Melatonin 3 MG TAB PO PRN (22:30)
[2022-02-05] MEDS: Acetaminophen 325 MG TAB PO PRN ×3 (03:16→20:07)
[2022-02-05 05:36] LABS: Anion Gap 13 mmol/L (10-20); BUN (Urea Nitrogen) 11 mg/dL (9.8-20.1); Calc. Creatinine Clearance 104 mL/min (70-130); Calcium 8.9 mg/dL (7.8-10.44); Carbon Dioxide 28 mmol/L (23-31); Cardiac Risk 1.9 (Less than 4.5); Chloride 104 mmol/L (98-107); Cholesterol 143 mg/dl (< 200 Desired); Estimated GFR 98; Glucose 132 mg/dL (80-115); HDL Cholesterol 74 mg/dL (>60 Neg Risk); LDL Cholesterol, Calculated 55 mg/dL; Sodium 141 mmol/L (136-145); Triglycerides 69 mg/dL (Less than 150)
[2022-02-05 06:29] LABS: #Eosinphils 0.1 thou/uL (0.0-0.7); #Lymphocytes 1.4 thou/uL (1.20-3.40); #Monocytes 0.9 thou/uL (0.11-0.59); #Neutrophils 9.9 thou/uL (1.40-6.50); %Basophils 0.1 % (0.0-1.0); %Eosinophils 0.9 % (0.0-10.0); %Lymphocytes 11.2 % (21.0-51.0); %Monocytes 7.6 % (0.0-10.0); %Neutrophils 80.1 % (42.0-75.0); Anisocytosis SLIGHT = 6-15 cells (100X) (0-5/hpf); MDiff Complete? YES; Mean Corpuscular HGB CONC 29.7 g/dL (32.0-36.0); Mean Corpuscular Hemoglobin 24.5 pg (27.0-31.0); Mean Corpuscular Volume 82.5 fL (78.0-98.0); Platelet Count 236 thou/uL (130-400); RBC Distribution Width 16.2 % (11.5-14.5); White Blood Cell (WBC) Count 12.4 thou/uL (4.8-10.8)
[2022-02-05] MEDS: Aspirin 81 mg Enteric Coated Tablet PO SCH (08:29)
[2022-02-05] MEDS: HumaLOG 300 UNITS/3 ML VIAL SC PRN ×2 (11:01→18:03)
[2022-02-05] MEDS: Azithromycin 500 MG in Sodium Chloride 0.9% 250 ML 250 ML IVPB SCH (15:32)
[2022-02-05] MEDS: Gabapentin 300 MG CAP PO SCH (20:06)
[2022-02-05] MEDS: cefTRIAXone\\ROCEPHIN 1 GM in Sodium Chloride 0.9% 100 ML IVPB SCH (20:09)
[2022-02-05] MEDS ORDERED: lamoTRIgine 100 MG TAB PO SCH (21:00)
[2022-02-05] MEDS ORDERED: clonazePAM 0.5 MG TAB PO SCH (21:00)
[2022-02-06 05:41] LABS: #Eosinphils 0.1 thou/uL (0.0-0.7); #Lymphocytes 1.3 thou/uL (1.20-3.40); #Monocytes 0.7 thou/uL (0.11-0.59); %Basophils 0.1 % (0.0-1.0); %Eosinophils 1.8 % (0.0-10.0); %Lymphocytes 18.5 % (21.0-51.0); %Monocytes 10.2 % (0.0-10.0); %Neutrophils 69.4 % (42.0-75.0); Hemoglobin 10.1 g/dL (12.0-16.0); Mean Corpuscular HGB CONC 30.8 g/dL (32.0-36.0); Mean Corpuscular Hemoglobin 25.5 pg (27.0-31.0); Mean Corpuscular Volume 82.7 fL (78.0-98.0); Mean Platelet Volume 8.4 fL (7.4-10.4); Platelet Count 246 thou/uL (130-400); RBC Distribution Width 15.9 % (11.5-14.5); Red Blood Cell (RBC) Count 3.98 mill/uL (4.20-5.40); White Blood Cell (WBC) Count 7.2 thou/uL (4.8-10.8)
[2022-02-06 06:00] LABS: Anion Gap 15 mmol/L (10-20); BUN (Urea Nitrogen) 12 mg/dL (9.8-20.1); Calc. Creatinine Clearance 101 mL/min (70-130); Calcium 8.5 mg/dL (7.8-10.44); Carbon Dioxide 24 mmol/L (23-31); Chloride 106 mmol/L (98-107); Estimated GFR 97; Glucose 134 mg/dL (80-115); Potassium 3.8 mmol/L (3.5-5.1); Sodium 141 mmol/L (136-145)
[2022-02-06] MEDS ORDERED: Levothyroxine Sodium 50 MCG TAB PO SCH (06:00)
[2022-02-06] MEDS ORDERED: Clopidogrel Bisulfate 75 MG TAB PO SCH (09:00)
[2022-02-06] MEDS: Acetaminophen 325 MG TAB PO PRN (09:15)
[2022-02-06] MEDS: Gabapentin 300 MG CAP PO SCH (09:15)
[2022-02-06] MEDS: Aspirin 81 mg Enteric Coated Tablet PO SCH (09:15)
[2022-02-06 12:07] VITALS: BP 133/67; TEMP 97.9
[2022-02-06] MEDS: HumaLOG 300 UNITS/3 ML VIAL SC PRN (12:26)
== END 2022-02-06 13:28 | disposition home or self-care (01) | DRG 91 ==
LOC: ERS 09:52 → NEURO 12:29
PROVIDERS: ADMIT Family Medicine; ATTEND Family Medicine
DX: G92.8 Other toxic encephalopathy (principal); R65.11 Systemic inflammatory response syndrome (SIRS) of non-infectious origin with acute organ dysfunction; T38.0X5A Adverse effect of glucocorticoids and synthetic analogues, initial encounter; R27.0 Ataxia, unspecified; Z20.822 Contact with and (suspected) exposure to COVID-19; I10 Essential (primary) hypertension; I25.10 Atherosclerotic heart disease of native coronary artery without angina pectoris; E11.9 Type 2 diabetes mellitus without complications; E03.9 Hypothyroidism, unspecified; E78.00 Pure hypercholesterolemia, unspecified; H26.9 Unspecified cataract; F41.9 Anxiety disorder, unspecified; F31.9 Bipolar disorder, unspecified; F90.9 Attention-deficit hyperactivity disorder, unspecified type; M54.9 Dorsalgia, unspecified; G89.29 Other chronic pain; M19.90 Unspecified osteoarthritis, unspecified site; Z90.49 Acquired absence of other specified parts of digestive tract; Z90.09 Acquired absence of other part of head and neck; Z98.890 Other specified postprocedural states; Z95.5 Presence of coronary angioplasty implant and graft; Z79.01 Long term (current) use of anticoagulants; Z79.890 Hormone replacement therapy; Z79.899 Other long term (current) drug therapy; Z98.84 Bariatric surgery status
CPT/HCPCS: 36415; 36416; 70450; 70551; 71045; 72125; 72141; 80048; 80053; 80061; 83605; 84484; 85025; 85610; 85730; 87040; 93005; 96365; 96366; 96367; J0456; J0692; J0696; J1815; J3370; J3490; J7050; U0002

== ENCOUNTER 2022-06-06 11:34 | Observation (INO) | payer BC, MEDICARE ==
[2022-06-06 12:16] LABS: #Eosinphils 0.1 thou/uL (0.0-0.7); #Lymphocytes 1.3 thou/uL (1.20-3.40); #Monocytes 0.7 thou/uL (0.11-0.59); #Neutrophils 4.6 thou/uL (1.40-6.50); %Basophils 0.4 % (0.0-1.0); %Eosinophils 1.7 % (0.0-10.0); %Lymphocytes 19.2 % (21.0-51.0); %Monocytes 10.9 % (0.0-10.0); %Neutrophils 67.7 % (42.0-75.0); Hemoglobin 12.7 g/dL (12.0-16.0); Mean Corpuscular HGB CONC 30.7 g/dL (32.0-36.0); Mean Corpuscular Hemoglobin 24.3 pg (27.0-31.0); Mean Corpuscular Volume 79.4 fl (78.0-98.0); Mean Platelet Volume 9.2 fL (7.4-10.4); Platelet Count 200 10x3/uL (130-400); RBC Distribution Width 19.5 % (11.5-14.5); Red Blood Cell (RBC) Count 5.23 mill/uL (4.20-5.40); White Blood Cell (WBC) Count 6.8 10x3/uL (4.8-10.8)
[2022-06-06 12:44] LABS: ALT (SGPT) 30 U/L (8-55); AST (SGOT) 29 U/L (5-34); Albumin 4.1 g/dL (3.4-4.8); Alkaline Phosphatase 86 U/L (40-110); Anion Gap 12 mmol/L (10-20); BUN (Urea Nitrogen) 15 mg/dL (9.8-20.1); Bilirubin, Total 0.5 mg/dL (0.2-1.2); Calc. Creatinine Clearance 0 mL/min (70-130); Carbon Dioxide 26 mmol/L (23-31); Chloride 107 mmol/L (98-107); Estimated GFR 95; Globulin 2.4 g/dL (2.4-3.5); Glucose 104 mg/dL (80-115); Lipase 13 U/L (8-78); Potassium 4.2 mmol/L (3.5-5.1); Protein, Total 6.5 g/dL (5.8-8.1); Sodium 141 mmol/L (136-145)
[2022-06-06] MEDS ORDERED: Nitroglycerin 2% Ointment 1 INCH/1 GM Packet ONE (13:12)
[2022-06-06] MEDS ORDERED: Acetaminophen 500 MG TAB ONE (13:12)
[2022-06-06 13:26] LABS: INR-International Normal Ratio 0.9; Prothrombin Time 12.9 sec (12.0-14.7)
[2022-06-06 13:27] LABS: PTT 32.2 sec (22.9-36.1)
[2022-06-06] MEDS ORDERED: Sodium Chloride 0.9% 1,000 ML IV SCH ×2 (15:00→19:45)
[2022-06-06] MEDS ORDERED: clonazePAM 0.5 MG TAB PO PRN (15:35)
[2022-06-06] MEDS ORDERED: traZODone HCl 50 MG TAB PO PRN (15:38)
[2022-06-06 18:06] LABS: Troponin I 0.019 ng/mL (< 0.028)
[2022-06-06] MEDS: Sodium Chloride 0.9% 1,000 ML IV SCH ×2 (18:18→21:29)
[2022-06-06 19:39] VITALS: BMI 32.1
[2022-06-06 20:32] LABS: Troponin I Less than 0.010 ng/mL (< 0.028)
[2022-06-06] MEDS ORDERED: Atorvastatin Calcium 20 MG TAB PO SCH (21:00)
[2022-06-06] MEDS ORDERED: Mirtazapine 15 MG Soltab PO SCH (21:00)
[2022-06-06] MEDS ORDERED: Acetaminophen 325 MG TAB PO PRN (23:56)
[2022-06-07 05:16] LABS: #Eosinphils 0.1 thou/uL (0.0-0.7); #Lymphocytes 1.2 thou/uL (1.20-3.40); #Monocytes 0.8 thou/uL (0.11-0.59); %Basophils 0.1 % (0.0-1.0); %Eosinophils 1.7 % (0.0-10.0); %Lymphocytes 20.2 % (21.0-51.0); %Monocytes 12.2 % (0.0-10.0); %Neutrophils 65.8 % (42.0-75.0); Hemoglobin 11.2 g/dL (12.0-16.0); Mean Corpuscular HGB CONC 30.5 g/dL (32.0-36.0); Mean Corpuscular Hemoglobin 24.7 pg (27.0-31.0); Mean Corpuscular Volume 80.9 fl (78.0-98.0); Mean Platelet Volume 9.2 fL (7.4-10.4); Platelet Count 187 10x3/uL (130-400); RBC Distribution Width 19.8 % (11.5-14.5); Red Blood Cell (RBC) Count 4.53 mill/uL (4.20-5.40); White Blood Cell (WBC) Count 6.1 10x3/uL (4.8-10.8)
[2022-06-07 05:32] LABS: Anion Gap 10 mmol/L (10-20); BUN (Urea Nitrogen) 11 mg/dL (9.8-20.1); Calc. Creatinine Clearance 102 mL/min (70-130); Calcium 8.5 mg/dL (7.8-10.44); Carbon Dioxide 26 mmol/L (23-31); Chloride 109 mmol/L (98-107); Estimated GFR 98; Glucose 120 mg/dL (80-115); Potassium 4.1 mmol/L (3.5-5.1); Sodium 141 mmol/L (136-145)
[2022-06-07] MEDS ORDERED: Levothyroxine Sodium 125 MCG TAB PO SCH (06:00)
[2022-06-07 07:26] LABS: Bilirubin Negative (Negative); Blood, Urine Negative (Negative); Clarity Clear (Clear); Glucose, Urine (Dipstick) Greater than 1000 mg/dL (Negative); Ketone, Urine Negative (Negative); Leukocyte Negative Leu/uL (Negative); Nitrite Negative (Negative); Protein, Urine (Dipstick) Negative (Neg-Trace); RBC/HPF 0-3 HPF (0-3); Specific Gravity, Urine 1.021 (1.002-1.036); Squamous Epithelial 0-3 HPF (0-3); Urobilinogen Normal mg/dL (Less than 2); WBC/HPF 0-3 HPF (0-3); pH, Urine 6.5 (5.0-9.0)
[2022-06-07 07:29] LABS: Bacteria/HPF 1+ HPF (None Seen); Urine Culture Reflex Yes Yes
[2022-06-07] MEDS ORDERED: Clopidogrel Bisulfate 75 MG TAB PO SCH (09:00)
[2022-06-07] MEDS ORDERED: lamoTRIgine 100 MG TAB PO SCH (09:00)
[2022-06-07] MEDS ORDERED: Benztropine 1 MG TAB PO SCH (09:00)
[2022-06-07 13:36] VITALS: BP 154/68; TEMP 97.3
== END 2022-06-07 15:55 | disposition home or self-care (01) ==
LOC: ERS 11:34 → 2SW 16:00
PROVIDERS: ADMIT Internal Medicine; ATTEND Internal Medicine
DX: R07.9 Chest pain, unspecified (principal); K52.9 Noninfective gastroenteritis and colitis, unspecified; I25.10 Atherosclerotic heart disease of native coronary artery without angina pectoris; I10 Essential (primary) hypertension; E78.5 Hyperlipidemia, unspecified; G89.29 Other chronic pain; M54.9 Dorsalgia, unspecified; E11.9 Type 2 diabetes mellitus without complications; E03.9 Hypothyroidism, unspecified; L98.9 Disorder of the skin and subcutaneous tissue, unspecified; I35.0 Nonrheumatic aortic (valve) stenosis; Z79.02 Long term (current) use of antithrombotics/antiplatelets; Z79.890 Hormone replacement therapy; Z79.899 Other long term (current) drug therapy; Z95.1 Presence of aortocoronary bypass graft; Z95.5 Presence of coronary angioplasty implant and graft; Z98.84 Bariatric surgery status; Z20.822 Contact with and (suspected) exposure to COVID-19
CPT/HCPCS: 36415; 36416; 71045; 80048; 80053; 81001; 82274; 82550; 83690; 83880; 84484; 85025; 85610; 85730; 86850; 86900; 86901; 87077; 87086; 87186; 87324; 87449; 93005; 94760; G0378; J7050; U0003; U0005